=== PATIENT | male | born 1985 | race Caucasian/White ===

== ENCOUNTER 2016-09-01 09:06 | Emergency (ER) ==
[2016-09-01 09:15] VITALS: BP 129/86; TEMP 99.1; BMI 33.9
--- NOTE | 2016-09-01 09:32 | ED.PDOC ---
General ED Provider: Dr. HIMANSHU MAYO JR Chief Complaint: Sore Throat Stated Complaint: PATIENT C/O SORE THROAT AND FEVER WITH NASAL CONGESTION.[End] since yesterday 99.1 104 14 95% 129/86 3/10 tylenol and sudafed Time Seen by Physician: 09:31 Mode of Arrival: Walk-In Information Source: Patient Exam Limitations: No limitations Nursing and Triage Documentation Reviewed and Agree: No Review of Systems - Review Of Systems Constitutional: Reports: Fever, Malaise Ears, Nose, Mouth, Throat: Reports: Nose pain, Nose discharge, Throat pain Respiratory: Reports: No symptoms Cardiac: Reports: No symptoms GI: Reports: No symptoms : Reports: No symptoms Musculoskeletal: Reports: No symptoms Skin: Reports: No symptoms Neurological: Reports: No symptoms Endocrine: Reports: No symptoms Hematologic/Lymphatic: Reports: No symptoms All Other Systems: Other Past Medical History - Past Medical History Endocrine: Reports: None Cardiovascular: Reports: None Respiratory: Reports: None Hematological: Reports: None Gastrointestinal: Reports: None Genitourinary: Reports: None Neuro/Psych: Reports: None Musculoskeletal: Reports: None Cancer: Reports: None - Surgical History General Surgical History: Reports: None - Family History Family History: Reports: None - Social History Smoking Status: Never smoker Hx Substance Use: No Alcohol Screening: Occasionally Physical Exam - Physical Exam Appearance: Ill-appearing Ill-appearing: Moderate Pain Distress: Moderate Eyes: CHARLES, EOMI, Conjunctiva clear ENT: Erythema Neck: Supple Respiratory: Airway patent, Breath sounds clear, Breath sounds equal, Respirations nonlabored Cardiovascular: RRR, Pulses normal, No rub, No murmur GI/: Soft, Nontender, No masses, Bowel sounds normal, No Organomegaly Musculoskeletal: Normal strength, ROM intact, No edema, No calf tenderness Skin: Warm, Dry, Normal color Neurological: Sensation intact, Motor intact, Reflexes intact, Cranial nerves intact, Alert, Oriented Psychiatric: Affect appropriate, Mood appropriate Critical Care Note - Critical Care Note Total Time (mins): 0 Course - Course Vital Signs: Temp Pulse Resp BP Pulse Ox 09/01/16 09:14 99.1 F 104 H 14 129/86 95 Departure - Departure Time of Disposition: 09:47 Disposition: HOME SELF-CARE Discharge Problem: URTI (acute upper respiratory infection), Streptococcus group A exposure Instructions: Upper Respiratory Infection (ED), Pharyngitis (ED) Condition: Good Pt referred to PMD for follow-up: Yes Additional Instructions: Tylenol and Motrin for symptoms rest increase fluids should resolve over 2-4 days if worsening or productive cough with fever; recheck recheck PMD next week if not resolved Prescriptions: Cephalexin [Keflex] 500 mg PO QID #40 capsule Allergies/Adverse Reactions: Allergies No Known Drug Allergies Adverse Reaction (Verified 09/01/16 09:15) Home Medications: Ambulatory Orders Cephalexin [Keflex] 500 mg PO QID #40 capsule 09/01/16
[2016-09-01 10:11] LABS: FLU INTERNAL QC INTERNAL QC VALID; RAPID FLU A NEGATIVE (NEGATIVE); RAPID FLU B NEGATIVE (NEGATIVE)
== END 2016-09-01 10:24 | disposition home or self-care (01) ==
LOC: ED 09:06
DX: J06.9 Acute upper respiratory infection, unspecified (principal); Z20.89 Contact with and (suspected) exposure to other communicable diseases
CPT/HCPCS: 87651; 87804; 87880; 99283

== ENCOUNTER 2017-08-06 12:00 | Emergency (ER) ==
[2017-08-06 12:05] VITALS: BP 145/89; TEMP 98.2; BMI 35.1
--- NOTE | 2017-08-06 13:01 | ED.PDOC ---
General ED Provider: Dr. YAN NOLASCO Chief Complaint: Nausea/Vomiting Stated Complaint: Flu symptoms with recurrent lower GI symptoms of diarrhea plus nausea. No signinficant emesis[place] and developed diarrhea. Has taken Immodium with relief Time Seen by Physician: 13:10 Mode of Arrival: Walk-In Information Source: Patient, Family Exam Limitations: No limitations Nursing and Triage Documentation Reviewed and Agree: Yes Reviewed sepsis parameters & appropriate labs ordered?: Yes System Inflammatory Response Syndrome: Not Applicable Sepsis Protocol: For patient's 13 years and over: Temp is 96.8 and below OR 101 and greater Pulse >90 BPM Resp >20/minute Acutely Altered Mental Status Are patient's symptoms suggestive of a new infection, such as: -Pneumonia -Skin, Soft Tissue -Endocarditis -UTI -Bone, Joint Infection -Implantable Device -Acute Abdominal Infection -Wound Infection -Meningitis -Blood Stream Catheter Infection -Unknown System Inflammatory Response Syndrome: Not Applicable GI Complaint Exam - Vomiting/Diarrhea Complaint/Exam Symptoms Are: Still present Episodes of Diarrhea Over Last 24 Hours: 4 Initial Severity: Mild Current Severity: Mild Character of Diarrhea: Reports: Watery Aggravating: Reports: Liquids Alleviating: Reports: Medications (Immodium) Associated Signs and Symptoms: Reports: Cramping Related History: Reports: Similar episode Last Oral Intake: This AM Review of Systems - Review Of Systems Constitutional: Reports: Loss of appetite. Denies: Chills, Diaphoresis, Fever, Sweats Eyes: Reports: No symptoms Ears, Nose, Mouth, Throat: Reports: No symptoms Respiratory: Reports: No symptoms Cardiac: Reports: No symptoms GI: Reports: Diarrhea, Nausea, Poor appetite. Denies: Blood streaked bowels, Constipated, Difficulty swallowing, Poor fluid intake, Rectal bleeding, Vomiting : Reports: No symptoms Musculoskeletal: Reports: No symptoms Skin: Reports: No symptoms Neurological: Reports: No symptoms Endocrine: Reports: No symptoms Hematologic/Lymphatic: Reports: No symptoms All Other Systems: Reviewed and Negative Past Medical History - Past Medical History Endocrine: Reports: None Cardiovascular: Reports: None Respiratory: Reports: None Hematological: Reports: None Gastrointestinal: Reports: None Genitourinary: Reports: None Neuro/Psych: Reports: None Musculoskeletal: Reports: None Cancer: Reports: None - Surgical History General Surgical History: Reports: None - Family History Family History: Reports: None - Social History Smoking Status: Never smoker Hx Substance Use: No Alcohol Screening: Occasionally Physical Exam - Physical Exam Appearance: Well-appearing Ill-appearing: Mild Eyes: CHARLES, EOMI, Conjunctiva clear ENT: Ears normal, Nose normal Neck: Supple Respiratory: Airway patent, Breath sounds clear Cardiovascular: RRR, Pulses normal, No rub, No murmur GI/: Soft, Bowel sounds normal, No Organomegaly, Tender (mimally in mid abdomen without guarding) Musculoskeletal: Normal strength, ROM intact, No edema Skin: Warm, Dry, Normal color Neurological: Sensation intact, Motor intact, Reflexes intact, Alert, Oriented, Disoriented, Alert to verbal Psychiatric: Affect appropriate, Mood appropriate, Anxious Critical Care Note - Critical Care Note Total Time (mins): 0 Course - Course Hematology/Chemistry: 08/06/17 13:14 08/06/17 13:14 Orders, Labs, Meds: Lab Review 08/06/17 08/06/17 08/06/17 13:00 13:14 13:14 WBC 11.50 H RBC 5.13 Hgb 16.1 Hct 46.7 MCV 91.0 MCH 31.4 H MCHC 34.5 RDW Coeff of Delbert 12.7 Plt Count 192 Immature Gran % (Auto) 0.3 Neut % (Auto) 60.1 Lymph % (Auto) 29.5 [place] % (Auto) 8.1 Eos % (Auto) 1.4 Baso % (Auto) 0.6 Immature Gran # (Auto) 0.0 Neut # 6.9 Lymph # 3.4 [place] # 0.9 Eos # 0.2 Baso # 0.1 Sodium 141 Potassium 4.1 Chloride 105 Carbon Dioxide 30 Anion Gap 10.1 BUN 16 Creatinine 1.02 Estimated GFR (MDRD) 84.00 BUN/Creatinine Ratio 15.68 Glucose 117 H Calcium 9.8 Total Bilirubin 0.9 AST 23 ALT 36 Alkaline Phosphatase 38 L Total Protein 8.2 Albumin 4.0 Globulin 4.2 Albumin/Globulin Ratio 0.95 Influenza A (Rapid) Negative by naat Influenza B (Rapid) Negative by naat Orders Category Date Time Status CBC W/ AUTO DIFF Stat LAB 08/06/17 13:14 Completed CMP [COMPREHENSIVE METABOLIC PANEL] Stat LAB 08/06/17 13:14 Completed FLU A & B RAPID TEST [MOLECULAR FLU A/B] Stat LAB 08/06/17 13:00 Completed RAPID STREP SCREEN [MOLECULAR GROUP A STREP] Stat LAB 08/06/17 13:00 Completed Diphenoxylate HCl/Atropine [Lomotil] MEDS 08/06/17 13:04 Discontinued 1 tab PO ONCE STA Ondansetron [Zofran Odt] MEDS 08/06/17 13:04 Discontinued 4 mg PO ONCE STA Medications Discontinued Medications Generic Name Dose Route Start Last Admin Trade Name Freq PRN Reason Stop Dose Admin Diphenoxylate HCl/Atropine 1 tab 08/06/17 13:04 08/06/17 13:15 Lomotil PO 08/06/17 13:05 1 tab ONCE STA Administration Ondansetron HCl 4 mg 08/06/17 13:04 08/06/17 13:16 Zofran Odt PO 08/06/17 13:05 4 mg ONCE STA Administration Vital Signs: Temp Pulse Resp BP Pulse Ox 08/06/17 12:01 98.2 F 93 H 20 145/89 H 96 Departure - Departure Time of Disposition: 15:50 Disposition: HOME SELF-CARE Discharge Problem: Gastroenteritis Instructions: Gastroenteritis (ED) Condition: Good Pt referred to PMD for follow-up: Yes (Follow up in 2-3 days; off work 2 days) Additional Instructions: Return ER if symptoms worsen Allergies/Adverse Reactions: Allergies No Known Drug Allergies Adverse Reaction (Verified 08/06/17 12:07) Home Medications: Ambulatory Orders 1 [No Reported Medications] 08/06/17 Disposition Discussed With: Patient, Family
[2017-08-06] MEDS ORDERED: LOMOTIL PO STA (13:04)
[2017-08-06] MEDS ORDERED: ZOFRAN ODT PO STA (13:04)
== END 2017-08-06 15:55 | disposition home or self-care (01) ==
LOC: ED 12:00
DX: K52.9 Noninfective gastroenteritis and colitis, unspecified (principal)
CPT/HCPCS: 36415; 80053; 85025; 87502; 87651; 99283

== ENCOUNTER 2018-01-22 16:50 | Emergency (ER) ==
[2018-01-22 16:52] VITALS: BP 146/99; TEMP 99; BMI 34.8
--- NOTE | 2018-01-22 17:03 | ED.PDOC ---
General ED Provider: Dr. GALE ORR Chief Complaint: Tooth Problem Stated Complaint: DENTAL PAIN Time Seen by Physician: 17:00 Mode of Arrival: Walk-In Information Source: Patient Exam Limitations: No limitations Nursing and Triage Documentation Reviewed and Agree: Yes Does patient meet sepsis criteria?: Yes If yes, has appropriate treatment been initiated?: No System Inflammatory Response Syndrome: Not Applicable Sepsis Protocol: For patient's 13 years and over: Temp is 96.8 and below OR 101 and greater Pulse >90 BPM Resp >20/minute Acutely Altered Mental Status Are patient's symptoms suggestive of a new infection, such as: -Pneumonia -Skin, Soft Tissue -Endocarditis -UTI -Bone, Joint Infection -Implantable Device -Acute Abdominal Infection -Wound Infection -Meningitis -Blood Stream Catheter Infection -Unknown EENT Complaint Exam - Dental/Oral Complaint/Exam Mechanism of Injury: No known trauma Onset/Duration: 3 DAYS Symptoms Are: Still present Timing: Constant Initial Severity: Moderate Current Severity: Moderate Character: Reports: Throbbing Aggravating: Reports: Heat, Cold, Chewing Alleviating: Reports: OTC Meds (MOTRIN HAS USED ONE EVERY 6 HOURS ) Associated Signs and Symptoms: Denies: Swelling, Discharge, Fever, Foul odor, Foul taste in mouth Cardiac Risk Factors: Reports: None Dental/Oral Surgical History: Reports: None Tooth Findings: Present: Gross decay, Gross caries, Dental fracture Cervical Lymphadenopathy Present: No Facial Swelling Present: No Bleeding Present: No Oropharynx Findings: Absent: Clots, Active bleeding Septal Hematoma: No Foreign Body Present: No Dysphagia Present: No Drooling Present: No Asymmetrical Tonsillar Swelling Present: No Uvula Midline: Yes Mar-tonsillar Fluctuence: No Trismus Present: No Palatal Petechiae Present: No Scarlatinaform Rash Present: No Lesions: Absent: Lip, Gums, Tongue, Buccal Mucosa, Pharynx Exanthem: Absent: Lip, Gums, Tongue, Buccal Mucosa, Pharynx Vesicles: Absent: Lip, Gums, Tongue, Buccal Mucosa, Pharynx Teeth Picture: 1 - BROKEN Differential Diagnoses: Dental Caries, Fractured Tooth Review of Systems - Review Of Systems Constitutional: Reports: No symptoms Eyes: Reports: No symptoms Ears, Nose, Mouth, Throat: Reports: Mouth pain Respiratory: Reports: No symptoms Cardiac: Reports: No symptoms GI: Reports: No symptoms : Reports: No symptoms Musculoskeletal: Reports: No symptoms Skin: Reports: No symptoms Neurological: Reports: No symptoms Endocrine: Reports: No symptoms Hematologic/Lymphatic: Reports: No symptoms All Other Systems: Reviewed and Negative Past Medical History - Past Medical History Previously Healthy: Yes Endocrine: Reports: None Cardiovascular: Reports: None Respiratory: Reports: None Hematological: Reports: None Gastrointestinal: Reports: None Genitourinary: Reports: None Neuro/Psych: Reports: None Musculoskeletal: Reports: None Cancer: Reports: None - Surgical History General Surgical History: Reports: None - Family History Family History: Reports: None - Social History Smoking Status: Never smoker Hx Substance Use: No Alcohol Screening: Occasionally Physical Exam - Physical Exam Appearance: Well-appearing, No pain distress, Well-nourished Eyes: CHARLES, EOMI, Conjunctiva clear ENT: Ears normal, Nose normal, Oropharynx normal Respiratory: Airway patent, Breath sounds clear, Breath sounds equal, Respirations nonlabored Cardiovascular: RRR, Pulses normal, No rub, No murmur GI/: Soft, Nontender, No masses, Bowel sounds normal, No Organomegaly Musculoskeletal: Normal strength, ROM intact, No edema, No calf tenderness Skin: Warm, Dry, Normal color Neurological: Sensation intact, Motor intact, Reflexes intact, Cranial nerves intact, Alert, Oriented Psychiatric: Affect appropriate, Mood appropriate Critical Care Note - Critical Care Note Total Time (mins): 0 Course - Course Vital Signs: Temp Pulse Resp BP Pulse Ox 01/22/18 16:50 99.0 F 96 H 18 146/99 H 98 Departure - Departure Time of Disposition: 17:03 Disposition: HOME SELF-CARE Discharge Problem: Toothache Instructions: Toothache (ED) Condition: Good Pt referred to PMD for follow-up: Yes IPMP verified?: No Additional Instructions: Please call your Family Physician as soon as possible to schedule a follow-up appointment.MUST SEE YOUR DENTIST GRETA Prescriptions: Hydrocodone/Acetaminophen [Goodman 10-325 Tablet] 1 each PO Q8HR #14 tablet Allergies/Adverse Reactions: Allergies No Known Drug Allergies Adverse Reaction (Verified 01/22/18 16:52) Home Medications: Ambulatory Orders Hydrocodone/Acetaminophen [Goodman 10-325 Tablet] 1 each PO Q8HR #14 tablet Disposition Discussed With: Patient
== END 2018-01-22 17:11 | disposition home or self-care (01) ==
LOC: ED 16:50
DX: K08.89 Other specified disorders of teeth and supporting structures (principal); K02.7 Dental root caries; S02.5XXA Fracture of tooth (traumatic), initial encounter for closed fracture
CPT/HCPCS: 99282

== ENCOUNTER 2018-04-13 23:35 | Emergency (ER) ==
--- NOTE | 2018-04-13 23:46 | ED.PDOC ---
General ED Provider: Dr. YAN WATSON-ER Chief Complaint: Tooth Problem Stated Complaint: my tooth is killing me Time Seen by Physician: 23:44 Mode of Arrival: Walk-In Information Source: Patient, Family Exam Limitations: No limitations Nursing and Triage Documentation Reviewed and Agree: Yes Does patient meet sepsis criteria?: No System Inflammatory Response Syndrome: Not Applicable Sepsis Protocol: For patient's 13 years and over: Temp is 96.8 and below OR 101 and greater Pulse >90 BPM Resp >20/minute Acutely Altered Mental Status Are patient's symptoms suggestive of a new infection, such as: -Pneumonia -Skin, Soft Tissue -Endocarditis -UTI -Bone, Joint Infection -Implantable Device -Acute Abdominal Infection -Wound Infection -Meningitis -Blood Stream Catheter Infection -Unknown EENT Complaint Exam - Dental/Oral Complaint/Exam Mechanism of Injury: Unknown Onset/Duration: several days Symptoms Are: Still present Timing: Constant Initial Severity: Mild Current Severity: Moderate Location: left lower molar Character: Reports: Dull, Aching, Throbbing Aggravating: Reports: None Alleviating: Reports: None Associated Signs and Symptoms: Reports: Swelling Related History: Reports: Previous tooth problem Tooth Findings: Present: Percussion tenderness, Gross decay, Gross caries, Dental fracture Cervical Lymphadenopathy Present: No Facial Swelling Present: No Bleeding Present: No Septal Hematoma: No Foreign Body Present: No Dysphagia Present: No Drooling Present: No Asymmetrical Tonsillar Swelling Present: No Uvula Midline: Yes Mar-tonsillar Fluctuence: No Trismus Present: No Palatal Petechiae Present: No Scarlatinaform Rash Present: No Differential Diagnoses: Dental Caries Review of Systems - Review Of Systems Constitutional: Reports: No symptoms Eyes: Reports: No symptoms Ears, Nose, Mouth, Throat: Reports: Mouth pain Respiratory: Reports: No symptoms Cardiac: Reports: No symptoms GI: Reports: No symptoms : Reports: No symptoms Musculoskeletal: Reports: No symptoms Skin: Reports: No symptoms Neurological: Reports: No symptoms Endocrine: Reports: No symptoms Hematologic/Lymphatic: Reports: No symptoms All Other Systems: Reviewed and Negative Past Medical History - Past Medical History Previously Healthy: Yes Endocrine: Reports: None Cardiovascular: Reports: None Respiratory: Reports: None Hematological: Reports: None Gastrointestinal: Reports: None Genitourinary: Reports: None Neuro/Psych: Reports: None Musculoskeletal: Reports: None Cancer: Reports: None - Surgical History General Surgical History: Reports: None - Family History Family History: Reports: None - Social History Smoking Status: Never smoker Hx Substance Use: No Alcohol Screening: Occasionally Physical Exam - Physical Exam Appearance: Well-appearing, No pain distress, Well-nourished Eyes: CHARLES, EOMI, Conjunctiva clear ENT: Ears normal, Nose normal, Oropharynx normal, Erythema Neck: Supple Respiratory: Airway patent, Breath sounds clear, Breath sounds equal, Respirations nonlabored Cardiovascular: RRR, Pulses normal, No rub, No murmur GI/: Soft, Nontender, No masses, Bowel sounds normal, No Organomegaly Musculoskeletal: Normal strength, ROM intact, No edema, No calf tenderness Skin: Warm, Dry, Normal color Neurological: Sensation intact, Motor intact, Reflexes intact, Cranial nerves intact, Alert, Oriented Psychiatric: Affect appropriate, Mood appropriate Critical Care Note - Critical Care Note Total Time (mins): 0 Departure - Departure Time of Disposition: 23:47 Disposition: HOME SELF-CARE Discharge Problem: Dental abscess Instructions: Dental Abscess (ED) Condition: Good Pt referred to PMD for follow-up: Yes IPMP verified?: No Additional Instructions: norco 7.5mg q 4hrs prn pain #10---amoxil 250mg tid x 7d ays---f/u dentist marlon Allergies/Adverse Reactions: Allergies No Known Drug Allergies Adverse Reaction (Verified 04/13/18 23:42) Home Medications: Ambulatory Orders 1 [No Reported Medications] 04/13/18 Disposition Discussed With: Patient, Family
[2018-04-13 23:51] VITALS: BP 142/86; TEMP 98.6; BMI 33.9
== END 2018-04-13 23:50 | disposition home or self-care (01) ==
LOC: ED 23:35
DX: K04.7 Periapical abscess without sinus (principal); K02.7 Dental root caries
CPT/HCPCS: 99282

== ENCOUNTER 2021-07-28 13:05 | Inpatient (IN) ==
[2021-07-28] MEDS ORDERED: VENTOLIN HFA (PER PUFF-WITH SPACER) IH ONE (13:17)
[2021-07-28] MEDS ORDERED: ATROVENT HFA INHALER (PER PUFF-WITH SPACER) IH ONE (13:17)
[2021-07-28 13:45] LABS: ABG O2 HGB 86.6 % (95-100); ABG PH 7.47 (7.35-7.45); BEecf 5.4 (-2.0-3.0); HCO3 29.1 (21-28); MetHb 1.5 (0-1.5); TCO2 30.3 (19-24); sO2 87.5 % (94-98); tHb 15.9 g/dl (11.7-17.4)
[2021-07-28 13:51] LABS: BASOPHILS % (AUTO) 0.2 % (0.0-3.0); HEMATOCRIT 42.7 % (42.0-52.0); IMMATURE GRANULOCYTE % (AUTO) 0.3 % (0.0-5.0); LYMPHOCYTES # (AUTO) 1.4 K/uL (0.60-3.4); LYMPHOCYTES % (AUTO) 23.7 (10.0-50.0); MEAN CORPUSCULAR HEMOGLOBIN 30.9 pg (27.0-31.0); MEAN CORPUSCULAR HGB CONC 35.1 (31.8-35.4); MONOCYTES # (AUTO) 0.3 K/uL (0.4-2.0); MONOCYTES % (AUTO) 5.9 (0-10); NEUTROPHILS % (AUTO) 69.9 % (42.2-75.2); PLATELET COUNT 129 10^3/uL (140-440); RDW COEFFICIENT OF VARIATION 12.8 % (11.6-14.8); RED BLOOD COUNT 4.85 10^6/ul (4.70-6.10); WHITE BLOOD COUNT 5.78 K/ul (4.2-10.2)
[2021-07-28 14:02] LABS: ALBUMIN 4.19 g/dL (3.5-5.0); ALKALINE PHOSPHATASE 42.2 U/L (38-126); ASPARTATE AMINO TRANSFERASE 53.9 U/L (17-59); BLOOD UREA NITROGEN 13.6 mg/dL (9-20); CALCIUM 8.83 mg/dL (8.4-10.2); CARBON DIOXIDE 28.9 mmol/L (22-30.0); CREATININE 0.87 mg/dL (0.60-1.10); GLUCOSE 132.1 mg/dL (74-106); SODIUM 135.6 mmol/L (134.5-145); TOTAL PROTEIN 7.54 g/dL (6.3-8.2)
[2021-07-28 14:14] LABS: TROPONIN I < 0.012 ng/ml (0.0000-0.120)
[2021-07-28 14:18] LABS: CREATINE KINASE MB 0.512 ng/ml (0.0-2.38)
--- NOTE | 2021-07-28 14:28 | DI ---
EXAM: CHEST RADIOGRAPH (1 VIEW) TECHNIQUE: Frontal Chest Radiograph. HISTORY: Cough. COMPARISON: Chest radiograph 05/11/2019 FINDINGS: Lines, Tubes, Devices: None Lungs and Pleura: Low lung volumes. Multifocal opacities in the right upper lobe, right lower lobe, and left lower lobe. No pleural effusion. No pneumothorax. Cardiomediastinum: Enlarged cardiomediastinal silhouette. No aortic calcifications. Bones/Soft Tissues: No acute osseous abnormality. No soft tissue abnormality. Upper Abdomen: Within normal limits. IMPRESSION: Multifocal bilateral lung opacities concerning for pneumonia.
[2021-07-28] MEDS ORDERED: MOTRIN PO PRN (15:02)
[2021-07-28] MEDS ORDERED: ZOFRAN 4 MG/2 ML IVP PRN (15:02)
[2021-07-28] MEDS: ZITHROMAX PO SCH (15:41)
[2021-07-28] MEDS: ROCEPHIN 1 GM/50 ML D5W 1 GM/50 ML BAG IV SCH (15:41)
[2021-07-28] MEDS ORDERED: VENTOLIN HFA (PER PUFF-WITH SPACER) IH SCH (16:30)
[2021-07-28 16:37] VITALS: BMI 35.6
[2021-07-28] MEDS ORDERED: ROBITUSSIN DM SYRUP PO PRN (16:57)
[2021-07-28] MEDS ORDERED: ATROVENT HFA INHALER (PER PUFF-WITH SPACER) IH SCH (18:00)
[2021-07-28] MEDS: DECADRON IVP SCH (18:07)
[2021-07-28] MEDS: VITAMIN D PO SCH (18:08)
[2021-07-28] MEDS: PEPCID PO SCH (18:08)
[2021-07-28] MEDS: ZINC-220 PO SCH (18:09)
[2021-07-28] MEDS: TYLENOL PO PRN (18:09)
--- NOTE | 2021-07-28 19:21 | ED.PDOC ---
General ED Provider: Dr. YAN NOLASCO Chief Complaint: Cough Stated Complaint: Cough and congestion, fatigue , muscular aching Time Seen by Provider: 07/28/21 17:39 Mode of Arrival: Walk-In Information Source: Patient Exam Limitations: No limitations Nursing and Triage Documentation Reviewed and Agree: Yes Does patient meet sepsis criteria?: No System Inflammatory Response Syndrome: Not Applicable Sepsis Protocol: For patient's 13 years and over: Temp is 96.8 and below OR 101 and greater Pulse >90 BPM Resp >20/minute Acutely Altered Mental Status Are patient's symptoms suggestive of a new infection, such as: -Pneumonia -Skin, Soft Tissue -Endocarditis -UTI -Bone, Joint Infection -Implantable Device -Acute Abdominal Infection -Wound Infection -Meningitis -Blood Stream Catheter Infection -Unknown Respiratory Complaint Exam Shortness of Air Complaint/Exam Onset/Duration: 3days Symptoms Are: Still present and Worse Timing: Constant Initial Severity: Moderate Current Severity: Moderate Character: Reports Dyspnea at rest and Dyspnea on exertion Aggravating: Reports Movement and Deep breaths Alleviating: Reports None Associated Signs and Symptoms: Reports Cough, Wheezing, Chest pain with cough, Chest pain and Nasal congestion Related History: Reports Similar episode History of Healthcare-Acquired Pneumonia: No Pulmonary Embolism Risk Factors: Reports None Cardiac Risk Factors: Reports None Pseudomonas Risk Factors: Reports None Tuberculosis Risk Factors: Reports None Home Oxygen Use: No Recent Stress Test: No Recent Echo/LV Function: No Respiratory Distress: Mild Stridor Present: Yes Tracheal Deviation: No Subcutaneous Emphysema: No Accessory Muscle Use: No Diminished Breath Sounds: Yes Prolonged Expiratory Phase: No Unable to Speak Full Sentences: No Fatigue: Yes Leg Swelling: No Jayesh's Sign Present: No Grunting Respirations: No Kussmaul Respirations: No Differential Diagnoses: SARS, Bronchospasm and URI Quality Indicator For Non-Traumatic Chest Pain/Syncope: EKG Performed Quality Indicators For Pneumonia/CAP: Blood Cultures-SCU admit Review of Systems Review Of Systems Constitutional: Reports Malaise and Weakness Eyes: Reports No symptoms Ears, Nose, Mouth, Throat: Reports No symptoms Respiratory: Reports Cough, Short of air and Wheezing Cardiac: Reports No symptoms GI: Reports No symptoms : Reports No symptoms Musculoskeletal: Reports No symptoms Skin: Reports No symptoms Neurological: Reports Anxiety Endocrine: Reports No symptoms All Other Systems: Reviewed and Negative REPLACED BY [facility] Medical History (Updated 07/28/21 @ 19:21 by YAN NOLASCO DO) No pertinent past medical history Family History (Updated 07/28/21 @ 16:48 by ABIODUN CAR, RN) FATHER Diabetes Social History (Updated 07/28/21 @ 16:49 by ABIODUN CAR, YOVANI) Alcohol intake: current Alcohol intake frequency: holidays/special occasions only Details: Pt reports very rare consumption of alcohol Physical Exam Physical Exam Appearance: Reports Ill-appearing Ill-appearing: Moderate Pain Distress: Moderate Eyes: Reports CHARLES, EOMI, Conjunctiva clear, Conjunctiva pale and Right pupil size (PERL_A) ENT: Reports Ears normal, Oropharynx normal and TMs Occluded Neck: Supple Respiratory: Reports Airway patent, Breath sounds diminished and Wheezes Cardiovascular: Reports RRR and No murmur GI/: Reports Soft, Nontender and No masses Musculoskeletal: Reports Normal strength, ROM intact, No edema and No calf tenderness Skin: Reports Warm, Dry and Normal color Neurological: Reports Sensation intact, Motor intact, Reflexes intact, Cranial nerves intact, Alert and Oriented Psychiatric: Reports Affect appropriate and Mood appropriate Interpretation Radiology Interpretation Exam Interpreted: Portable CXR (pneumonia) EKG Interpretation Time of EKG #1: 13:46 Rate: Tachy Rhythm: Sinus Ectopy: None [place]: Left ST Segment: Normal Interpretation: sinus tachycardia Critical Care Note Critical Care Note Total Critical Care Time (mins): 30 Course Course Hematology/Chemistry: 07/28/21 13:35 07/28/21 13:35 Orders, Labs, Meds: Lab Review 07/28/21 07/28/21 07/28/21 13:15 13:35 13:35 WBC 5.78 RBC 4.85 Hgb 15.0 Hct 42.7 MCV 88.0 MCH 30.9 MCHC 35.1 RDW Coeff of Delbert 12.8 Plt Count 129 L Immature Gran % (Auto) 0.3 Neut % (Auto) 69.9 Lymph % (Auto) 23.7 Branch % (Auto) 5.9 Eos % (Auto) 0.0 Baso % (Auto) 0.2 Neut # (Auto) 4.0 Lymph # (Auto) 1.4 Branch # (Auto) 0.3 L Eos # (Auto) 0.0 Baso # (Auto) 0.0 Immature Gran # (Auto) 0.0 Puncture Site Base Excess O2 Saturation ABG pH ABG pCO2 ABG pO2 ABG HCO3 ABG Total CO2 Ozzie Test Hemoglobin Oxyhemoglobin Carboxyhemoglobin Total Hemoglobin O2 Delivery Device FiO2 % Sodium 135.6 Potassium 3.40 L Chloride 99.0 Carbon Dioxide 28.9 Anion Gap 11.10 BUN 13.6 Creatinine 0.87 Estimated GFR (MDRD) 98.00 BUN/Creatinine Ratio 15.63 Glucose 132.1 H Calcium 8.83 Total Bilirubin 0.80 AST 53.9 ALT 36.0 Alkaline Phosphatase 42.2 Total Creatine Kinase 426.0 H CK-MB (CK-2) 0.512 CK-MB (CK-2) % 0.1200 Troponin I < 0.012 Total Protein 7.54 Albumin 4.19 Globulin 3.35 Albumin/Globulin Ratio 1.25 SARS CoV-2 RNA Rapid RODGER Positive H 07/28/21 13:41 WBC RBC Hgb Hct MCV MCH MCHC RDW Coeff of Delbert Plt Count Immature Gran % (Auto) Neut % (Auto) Lymph % (Auto) Branch % (Auto) Eos % (Auto) Baso % (Auto) Neut # (Auto) Lymph # (Auto) Branch # (Auto) Eos # (Auto) Baso # (Auto) Immature Gran # (Auto) Puncture Site Rbrach Base Excess 5.4 H O2 Saturation 87.5 L ABG pH 7.47 H ABG pCO2 40.0 ABG pO2 50.0 L* ABG HCO3 29.1 H ABG Total CO2 30.3 H Ozzie Test + Hemoglobin 1.5 Oxyhemoglobin 86.6 L Carboxyhemoglobin 2.0 H Total Hemoglobin 15.9 O2 Delivery Device Ra FiO2 % 21.0 Sodium Potassium Chloride Carbon Dioxide Anion Gap BUN Creatinine Estimated GFR (MDRD) BUN/Creatinine Ratio Glucose Calcium Total Bilirubin AST ALT Alkaline Phosphatase Total Creatine Kinase CK-MB (CK-2) CK-MB (CK-2) % Troponin I Total Protein Albumin Globulin Albumin/Globulin Ratio SARS CoV-2 RNA Rapid RODGER Orders Category Date Time Status ADMIT PATIENT INPATIENT .TO SCU (MONITORED BED) ADMISSION 07/28/21 15:01 Active ABG DRAW REQUEST Stat CARDIO 07/28/21 13:17 Completed EKG-(ED ONLY) Stat CARDIO 07/28/21 13:17 Completed EKG-(ED ONLY) Stat CARDIO 07/28/21 13:52 Completed METERED DOSE INHALATION Routine CARDIO 07/28/21 13:17 Completed OXYGEN Routine CARDIO 07/28/21 15:02 Active BLOOD GLUCOSE MONITORING (MED/SURG) 0630,1100,1700,2100 CARE 07/28/21 15:03 Active INTAKE & OUTPUT Q8HR CARE 07/28/21 15:02 Active TELEMETRY MONITORING TELE CARE 07/28/21 15:01 Active 2 GRAM SODIUM DIET DIETARY 07/28/21 Dinner Ordered IV [ED IV/MEDIPORT/POWERPORT] .ONCE EMERGENCY 07/28/21 13:54 Active ABG COOX Stat LAB 07/28/21 13:41 Completed BLOOD CULTURE Routine LAB 07/28/21 15:29 Received CBC W/ AUTO DIFF DAILY@0600 LAB 07/29/21 06:00 Ordered CBC W/ AUTO DIFF DAILY@0600 LAB 07/30/21 06:00 Ordered CBC W/ AUTO DIFF Stat LAB 07/28/21 13:35 Completed COMPREHENSIVE METABOLIC PANEL DAILY@0600 LAB 07/29/21 06:00 Ordered COMPREHENSIVE METABOLIC PANEL DAILY@0600 LAB 07/30/21 06:00 Ordered COMPREHENSIVE METABOLIC PANEL Stat LAB 07/28/21 13:35 Completed CREATINE KINASE Stat LAB 07/28/21 13:35 Completed D-DIMER Stat LAB 07/28/21 Uncollected SARS COV-2 RNA RAPID RODGER Stat LAB 07/28/21 13:15 Completed TROPONIN I Stat LAB 07/28/21 13:35 Completed 0.9 % Sodium Chloride [Saline Flush] MEDS 07/28/21 13:54 Active 1 syr IVF PRN PRN Albuterol Inhaler(with Spacer) [Ventolin Hfa (Per Puff- MEDS 07/28/21 13:17 Discontinued with Spacer)] 2 puff IH ONCE ONE Azithromycin [Zithromax] MEDS 07/28/21 15:30 Active 500 mg PO DAILY Ceftriaxone/D5w 1 gm Premix [Rocephin 1 gm/50 ml D5w] MEDS 07/28/21 15:30 Active 1 gm in 50 ml IV DAILY Ibuprofen [Motrin] MEDS 07/28/21 15:02 Active 600 mg PO Q6H PRN Ipratropium Inhaler(Spacer) [Atrovent Hfa Inhaler (Per MEDS 07/28/21 13:17 Discontinued Puff-with Spacer)] 2 puff IH ONCE ONE Ondansetron HCl/Pf [Zofran 4 mg/2 ml] MEDS 07/28/21 15:02 Active 4 mg IVP Q6H PRN RESUSCITATION STATUS Routine OTHERS 07/28/21 15:02 Completed CHEST, 1V AP ONLY Stat RADS 07/28/21 13:51 Completed Medications Generic Name Dose Route Start Last Admin Trade Name Freq PRN Reason Stop Dose Admin Acetaminophen 650 mg 07/28/21 15:10 07/28/21 18:09 Acetaminophen 325 Mg Tablet PO 650 mg Q4H PRN Administration Pain Albuterol Sulfate 2 puff 07/28/21 20:00 Albuterol Sulfate (Ventolin Hfa) 18 Gm 1 Puff With Spacer IH RTQID CAMPOS Albuterol Sulfate 2 puff 07/28/21 21:00 Albuterol Sulfate (Ventolin Hfa) 18 Gm 1 Puff With Spacer IH TID CAMPOS Azithromycin 500 mg 07/28/21 15:30 07/28/21 15:41 Azithromycin 250 Mg Tablet PO 07/31/21 08:59 500 mg DAILY CAMPOS Administration Budesonide/Formoterol Fumarate 2 puff 07/28/21 21:00 Budesonide/Formoterol Fumarate 160/4.5 Mcg Inhaler IH BID CAMPOS Cholecalciferol 5,000 unit 07/28/21 17:30 07/28/21 18:08 Cholecalciferol (Vitamin D3) 1,000 Unit (25 Mcg) Tablet PO 5,000 unit DAILY CAMPOS Administration Dexamethasone Sodium Phosphate 6 mg 07/28/21 17:00 07/28/21 18:07 Dexamethasone Sod Phos 10 Mg/Ml Inj IVP 6 mg DAILY CMAPOS Administration Famotidine 40 mg 07/28/21 17:30 07/28/21 18:08 Famotidine 20 Mg Tablet PO 40 mg BIDAC CAMPOS Administration Guaifenesin/Dextromethorphan 10 ml 07/28/21 16:57 07/28/21 18:09 Guaifenesin/Dextromethorphan 200/20 Mg/10 Ml Cup PO 10 ml Q4H PRN Administration Cough CEFTRIAXONE/D5W 1 GM PREMIX 1 gm in 50 mls @ 75 mls/hr 07/28/21 15:30 07/28/21 15:41 Rocephin 1 Gm/50 Ml D5w IV 07/31/21 15:29 75 mls/hr DAILY CAMPOS Administration REMDESIVIR SOLUTION 200 mg/ 290 mls @ 145 mls/hr 07/29/21 12:00 Sodium Chloride IV 07/29/21 13:59 ONCE ONE REMDESIVIR SOLUTION 100 mg/ 270 mls @ 270 mls/hr 07/30/21 09:00 Sodium Chloride IV DAILY [facility] Ibuprofen 600 mg 07/28/21 15:02 Ibuprofen 600 Mg Tablet PO Q6H PRN Mild Pain Ipratropium [place] 2 puff 07/28/21 20:00 Ipratropium [place] 12.9 Gm Hfa Inhaler Per Puff With Spacer IH RTQID [facility] Ondansetron HCl 4 mg 07/28/21 15:02 Ondansetron Hcl/Pf 4 Mg/2 Ml Sdv IVP Q6H PRN Nausea / Vomiting Sodium Chloride 1 syr 07/28/21 13:54 0.9% Sodium Chloride 10 Ml Disp.Syrin IVF PRN PRN To flush IV Zinc Sulfate 220 mg 07/28/21 17:30 07/28/21 18:09 Zinc Sulfate 220 Mg Capsule PO 220 mg DAILY [facility] Administration Discontinued Medications Generic Name Dose Route Start Last Admin Trade Name Freq PRN Reason Stop Dose Admin Albuterol Sulfate 2 puff 07/28/21 13:17 07/28/21 13:50 Albuterol Sulfate (Ventolin Hfa) 18 Gm 1 Puff With Spacer IH 07/28/21 13:18 2 puff ONCE ONE Administration Albuterol Sulfate 2 puff 07/28/21 16:30 07/28/21 18:16 Albuterol Sulfate (Ventolin Hfa) 18 Gm 1 Puff With Spacer IH Not Given Q6H [facility] Ipratropium [place] 2 puff 07/28/21 13:17 07/28/21 15:16 Ipratropium [place] 12.9 Gm Hfa Inhaler Per Puff With Spacer IH 07/28/21 13:18 Not Given ONCE ONE Ipratropium [place] 2 puff 07/28/21 18:00 Ipratropium [place] 12.9 Gm Hfa Inhaler Per Puff With Spacer IH RTQ6H [facility] Vital Signs: Temp Pulse Resp BP Pulse Ox 07/28/21 13:13 96.9 F L 115 H 20 117/82 89 L Discharge Plan Discharge Patient Disposition: ADMITTED INPATIENT Discharge Problem: COVID-19, Bilateral interstitial pneumonia ED Provider: YAN NOLASCO Condition: Fair Physician Progress Note: []Discussed findings with patient Recommend admission for treatmetn Declines transfer. States Aunt and Uncle hospitalized with COVID
[2021-07-28] MEDS: ATROVENT HFA INHALER (PER PUFF-WITH SPACER) IH SCH (19:25)
[2021-07-28] MEDS: VENTOLIN HFA (PER PUFF-WITH SPACER) IH SCH ×2 (19:25→23:21)
[2021-07-28] MEDS: SYMBICORT 160-4.5 MCG INHALER IH SCH (21:27)
[2021-07-28] MEDS ORDERED: IMODIUM PO PRN (23:00)
[2021-07-29] MEDS: TYLENOL PO PRN ×2 (00:31→08:55)
[2021-07-29] MEDS: ROBITUSSIN AC SYRUP PO PRN ×5 (00:42→21:50)
[2021-07-29] MEDS: ATROVENT HFA INHALER (PER PUFF-WITH SPACER) IH SCH ×4 (04:40→19:45)
[2021-07-29] MEDS: VENTOLIN HFA (PER PUFF-WITH SPACER) IH SCH ×5 (04:40→19:45)
[2021-07-29] MEDS: PEPCID PO SCH ×2 (05:48→16:51)
[2021-07-29 06:13] LABS: BASOPHILS % (AUTO) 0.2 % (0.0-3.0); HEMATOCRIT 42.4 % (42.0-52.0); HEMOGLOBIN 14.8 g/dl (14.0-18.0); IMMATURE GRANULOCYTE % (AUTO) 0.3 % (0.0-5.0); LYMPHOCYTES # (AUTO) 1.4 K/uL (0.60-3.4); LYMPHOCYTES % (AUTO) 22.1 (10.0-50.0); MEAN CORPUSCULAR HEMOGLOBIN 30.7 pg (27.0-31.0); MEAN CORPUSCULAR HGB CONC 34.9 (31.8-35.4); MONOCYTES # (AUTO) 0.3 K/uL (0.4-2.0); MONOCYTES % (AUTO) 4.9 (0-10); NEUTROPHILS # (AUTO) 4.6 K/ul (2.0-6.9); NEUTROPHILS % (AUTO) 72.5 % (42.2-75.2); PLATELET COUNT 143 10^3/uL (140-440); RDW COEFFICIENT OF VARIATION 12.8 % (11.6-14.8); RED BLOOD COUNT 4.82 10^6/ul (4.70-6.10); WHITE BLOOD COUNT 6.34 K/ul (4.2-10.2)
[2021-07-29 06:30] LABS: PROTHROMBIN TIME 10.4 SEC (9.3-11.0)
[2021-07-29 06:30] LABS: ALANINE AMINOTRANSFERASE 35.3 U/L (0-50); ALBUMIN 4.27 g/dL (3.5-5.0); ALKALINE PHOSPHATASE 38.1 U/L (38-126); ASPARTATE AMINO TRANSFERASE 50.8 U/L (17-59); BILIRUBIN,TOTAL 0.78 mg/dL (0.2-1.3); BLOOD UREA NITROGEN 16.5 mg/dL (9-20); CALCIUM 8.99 mg/dL (8.4-10.2); CARBON DIOXIDE 29.6 mmol/L (22-30.0); CHLORIDE 96.8 mmol/L (98-107); CREATININE 0.89 mg/dL (0.60-1.10); POTASSIUM 3.83 mmol/L (3.5-5.1); SODIUM 135.2 mmol/L (134.5-145); TOTAL PROTEIN 7.65 g/dL (6.3-8.2)
[2021-07-29 06:41] LABS: TROPONIN I < 0.012 ng/ml (0.0000-0.120)
[2021-07-29] MEDS: ROCEPHIN 1 GM/50 ML D5W 1 GM/50 ML BAG IV SCH (08:55)
[2021-07-29] MEDS: SYMBICORT 160-4.5 MCG INHALER IH SCH ×2 (08:55→21:56)
[2021-07-29] MEDS: ZINC-220 PO SCH (08:55)
[2021-07-29] MEDS: VITAMIN D PO SCH (08:55)
[2021-07-29] MEDS: ZITHROMAX PO SCH (08:55)
[2021-07-29] MEDS: DECADRON IVP SCH (09:23)
[2021-07-29 11:38] LABS: ABG PH 7.45 (7.35-7.45); BEecf 5.2 (-2.0-3.0); COHb 2.7 (0.5-1.5); HCO3 29.2 (21-28); TCO2 30.5 (19-24); sO2 90.1 % (94-98); tHb 15.1 g/dl (11.7-17.4)
[2021-07-29] MEDS ORDERED: VEKLURY 200 MG in SODIUM CHLORIDE 250 ML IV ONE (12:00)
--- NOTE | 2021-07-29 22:46 | PCM.PROG ---
Date Seen by Provider: 07/29/21 Time Seen by Provider: 09:00 Subjective: Date of admit 07/28/21 for COVID pneumnonia and hypoxia. Says he feels somewhat better. Still with dyspnea, no pain. HPI - presented to ER with dyspnea, no vaccines. Objective: Vitals: T=98.4 F, P=92, R=30, TT=037/73, SPO2=94 HEENT: [WNL] Neck: [supple] Lungs: [Rhonchi, decreased breath sounds.] CVS: RRR, no m Abdomen: [soft] Extremities: [intact] Neurological: [intact] Skin: [intact] Lab/Tests/Diagnostic Imaging: [See labs, no acute changes of concern.] (1) Pneumonia due to COVID-19 virus: Status: Acute Code(s): U07.1 - COVID-19; J12.82 - Pneumonia due to coronavirus disease 2018 SNOMED Code(s): 067560033375761559 Assessment: Receiving standard therapy with remdesivir, decadron, albuterol prn. Rocephin and zithromax. Stable. (2) Hypoxia: Status: Acute Code(s): R09.02 - Hypoxemia SNOMED Code(s): 659931929 Assessment: Currently on vapotherm and maintaining sat. around 90% and better. No CO2 retention. Plan: 1. COVID pneumonia - continue current management. 2. Hypoxemia - continue vapotherm with RT monitoring.
[2021-07-30] MEDS: ROBITUSSIN AC SYRUP PO PRN ×4 (01:26→21:14)
[2021-07-30] MEDS ORDERED: ATIVAN IVP ONE (01:41)
[2021-07-30] MEDS: ATROVENT HFA INHALER (PER PUFF-WITH SPACER) IH SCH ×4 (04:15→19:15)
[2021-07-30] MEDS: VENTOLIN HFA (PER PUFF-WITH SPACER) IH SCH ×4 (04:15→19:15)
[2021-07-30 05:18] LABS: ABG O2 HGB 95.3 % (95-100); ABG PH 7.46 (7.35-7.45); BEecf 6.1 (-2.0-3.0); HCO3 29.9 (21-28); MetHb 0.9 (0-1.5); TCO2 31.2 (19-24); sO2 97.6 % (94-98)
[2021-07-30 05:32] LABS: HEMATOCRIT 42.9 % (42.0-52.0); HEMOGLOBIN 14.8 g/dl (14.0-18.0); IMMATURE GRANULOCYTE % (AUTO) 0.3 % (0.0-5.0); LYMPHOCYTES # (AUTO) 1.7 K/uL (0.60-3.4); LYMPHOCYTES % (AUTO) 21.4 (10.0-50.0); MEAN CORPUSCULAR HEMOGLOBIN 30.5 pg (27.0-31.0); MEAN CORPUSCULAR HGB CONC 34.5 (31.8-35.4); MEAN CORPUSCULAR VOLUME 88.5 fl (80.0-94.0); MONOCYTES # (AUTO) 0.6 K/uL (0.4-2.0); MONOCYTES % (AUTO) 7.1 (0-10); NEUTROPHILS # (AUTO) 5.6 K/ul (2.0-6.9); NEUTROPHILS % (AUTO) 71.2 % (42.2-75.2); PLATELET COUNT 154 10^3/uL (140-440); RDW COEFFICIENT OF VARIATION 12.7 % (11.6-14.8); RED BLOOD COUNT 4.85 10^6/ul (4.70-6.10); WHITE BLOOD COUNT 7.85 K/ul (4.2-10.2)
[2021-07-30 05:48] LABS: ALANINE AMINOTRANSFERASE 41.4 U/L (0-50); ALKALINE PHOSPHATASE 40.8 U/L (38-126); BILIRUBIN,TOTAL 0.72 mg/dL (0.2-1.3); BLOOD UREA NITROGEN 19.1 mg/dL (9-20); CALCIUM 8.69 mg/dL (8.4-10.2); CARBON DIOXIDE 29.7 mmol/L (22-30.0); CREATININE 0.86 mg/dL (0.60-1.10); GLUCOSE 118.2 mg/dL (74-106); POTASSIUM 3.54 mmol/L (3.5-5.1); SODIUM 136.8 mmol/L (134.5-145); TOTAL PROTEIN 7.45 g/dL (6.3-8.2)
[2021-07-30 05:52] LABS: PROTHROMBIN TIME 10.1 SEC (9.3-11.0)
[2021-07-30] MEDS: PEPCID PO SCH ×2 (05:56→16:44)
[2021-07-30 06:02] LABS: TROPONIN I < 0.012 ng/ml (0.0000-0.120)
[2021-07-30] MEDS: DECADRON IVP SCH (08:48)
[2021-07-30] MEDS: ROCEPHIN 1 GM/50 ML D5W 1 GM/50 ML BAG IV SCH (08:48)
[2021-07-30] MEDS: SYMBICORT 160-4.5 MCG INHALER IH SCH ×2 (08:49→21:00)
[2021-07-30] MEDS: VITAMIN D PO SCH (08:49)
[2021-07-30] MEDS: ZITHROMAX PO SCH (08:49)
[2021-07-30] MEDS: ZINC-220 PO SCH (08:49)
[2021-07-30] MEDS: VEKLURY 100 MG in SODIUM CHLORIDE 250 ML IV SCH (11:39)
--- NOTE | 2021-07-30 13:42 | PCM.PROG ---
Date Seen by Provider: 07/30/21 Time Seen by Provider: 10:00 Subjective: Patient is a 36 year old male who was admitted 3 days ago with COVID -19 Pneumonia. He states that he is feeling better. Denies any chest pain. States the bowels move every day and that his appetite is better. Objective: Vitals: T=97.8 F, P=82, R=18, GF=615/70, SPO2=97 HEENT: [MUCUS MEMBRANES ARE MOIST ] Neck: [supple] Lungs: [Basilar Rhonchi mostly diminished] CVS: [Regualr S1 and S2 ] Abdomen: [Soft, obese non tender ] Extremities: [no Edema, no cyanosis] Neurological: [Awake alert, moves all extremities. ] Skin: [Tattoos noted, No diaphoresis ] Lab/Tests/Diagnostic Imaging: [] (1) Pneumonia due to COVID-19 virus: Status: Acute Code(s): U07.1 - COVID-19; J12.82 - Pneumonia due to coronavirus disease 2018 SNOMED Code(s): 853253900580552216 Assessment: Continue current( Day #3) Antibiotic treatment and oxygen supplimentation including in hailers. Continues to need High flow oxygen (2) Hypoxia: Status: Acute Code(s): R09.02 - Hypoxemia SNOMED Code(s): 106322495 Assessment: Continues supplimentation. May need home oxygen set up prior to discharge. Plan: Continue DVT prophylaxis with lovenox Asking for another cough medication other than Robitussion. Will order Tesalone pearls.
[2021-07-30] MEDS: TESSALON PERLES PO SCH ×2 (14:17→21:14)
[2021-07-30] MEDS: TYLENOL PO PRN (21:14)
[2021-07-30] MEDS ORDERED: MILK OF MAGNESIA PO PRN (23:01)
[2021-07-30] MEDS: ROBITUSSIN SUGAR-FREE PO PRN (23:39)
[2021-07-30] MEDS: NORCO 10-325 PO PRN (23:39)
[2021-07-30] MEDS: ATIVAN IVP SCH (23:40)
[2021-07-31] MEDS: ROBITUSSIN SUGAR-FREE PO PRN ×4 (03:17→20:48)
[2021-07-31] MEDS: NORCO 10-325 PO PRN ×4 (03:17→20:47)
[2021-07-31] MEDS: ATROVENT HFA INHALER (PER PUFF-WITH SPACER) IH SCH ×4 (04:45→19:55)
[2021-07-31] MEDS: VENTOLIN HFA (PER PUFF-WITH SPACER) IH SCH ×4 (04:45→19:55)
[2021-07-31 05:29] LABS: ABG PH 7.43 (7.35-7.45)
[2021-07-31 05:30] LABS: ABG O2 HGB 93.8 % (95-100); BEecf 5.6 (-2.0-3.0); COHb 2 (0.5-1.5); HCO3 29.9 (21-28); MetHb 1.1 (0-1.5); TCO2 31.3 (19-24); sO2 96.1 % (94-98); tHb 15.2 g/dl (11.7-17.4)
[2021-07-31 05:39] LABS: ALANINE AMINOTRANSFERASE 39.2 U/L (0-50); ALBUMIN 3.81 g/dL (3.5-5.0); ALKALINE PHOSPHATASE 36.4 U/L (38-126); ASPARTATE AMINO TRANSFERASE 47.9 U/L (17-59); BILIRUBIN,TOTAL 0.63 mg/dL (0.2-1.3); BLOOD UREA NITROGEN 22.1 mg/dL (9-20); CALCIUM 8.88 mg/dL (8.4-10.2); CARBON DIOXIDE 33.6 mmol/L (22-30.0); CHLORIDE 99.6 mmol/L (98-107); CREATININE 0.94 mg/dL (0.60-1.10); GLUCOSE 121.5 mg/dL (74-106); POTASSIUM 3.4 mmol/L (3.5-5.1); SODIUM 138.7 mmol/L (134.5-145); TOTAL PROTEIN 7.1 g/dL (6.3-8.2)
[2021-07-31 05:59] LABS: PROTHROMBIN TIME 10.3 SEC (9.3-11.0)
[2021-07-31] MEDS: PEPCID PO SCH ×2 (06:01→16:19)
[2021-07-31] MEDS: DECADRON IVP SCH (08:32)
[2021-07-31] MEDS: ROCEPHIN 1 GM/50 ML D5W 1 GM/50 ML BAG IV SCH (08:32)
[2021-07-31] MEDS: VITAMIN D PO SCH (08:33)
[2021-07-31] MEDS: TESSALON PERLES PO SCH ×3 (08:33→20:47)
[2021-07-31] MEDS: SYMBICORT 160-4.5 MCG INHALER IH SCH ×2 (08:33→20:49)
[2021-07-31] MEDS: ZINC-220 PO SCH (08:33)
[2021-07-31 12:21] LABS: C-REACTIVE PROTEIN 57 mg/L (0-10)
[2021-07-31 12:21] LABS: C-REACTIVE PROTEIN 70 mg/L (0-10)
[2021-07-31] MEDS: VEKLURY 100 MG in SODIUM CHLORIDE 250 ML IV SCH (13:22)
--- NOTE | 2021-07-31 16:09 | PCM.PROG ---
Date Seen by Provider: 07/31/21 Time Seen by Provider: 09:00 Subjective: Admit 07/28/21 with COVID pneumonia and hypoxemia. Starting to feel better, less dyspnea. HPI - see chart, came to ER with dyspnea and admitted Objective: Vitals: T=98.4 F, P=112, R=20, BJ=323/72, SPO2=92 HEENT: [WNL] Neck: supple Lungs: [rhonchi, decreased breath sounds] CVS: [RRR] Abdomen: [soft, obese] Extremities: [intact, no change] Neurological: [intact] Skin: [wnl] Lab/Tests/Diagnostic Imaging: [See chart, all stable.] (1) Pneumonia due to COVID-19 virus: Status: Acute Code(s): U07.1 - COVID-19; J12.82 - Pneumonia due to coronavirus disease 2018 SNOMED Code(s): 603209543581579646 Assessment: Slow improvement, on remdesivir and standard other tx. (2) Hypoxia: Status: Acute Code(s): R09.02 - Hypoxemia SNOMED Code(s): 241174477 Assessment: On vapotherm, settings per RT, keeping sat 92% or higher Plan: 1. COVID pneumonia - continue same tx. 2. Hypoxia - continue vapotherm.
[2021-07-31] MEDS: ATIVAN IVP SCH (20:48)
[2021-08-01] MEDS: NORCO 10-325 PO PRN ×3 (00:41→18:26)
[2021-08-01] MEDS: ROBITUSSIN SUGAR-FREE PO PRN ×4 (00:42→15:38)
[2021-08-01] MEDS: ATROVENT HFA INHALER (PER PUFF-WITH SPACER) IH SCH ×4 (04:20→19:45)
[2021-08-01] MEDS: VENTOLIN HFA (PER PUFF-WITH SPACER) IH SCH ×4 (04:20→19:45)
[2021-08-01 05:19] LABS: BASOPHILS % (AUTO) 0.1 % (0.0-3.0); EOSINOPHILS % (AUTO) 0.3 % (0.0-7.0); HEMATOCRIT 41.3 % (42.0-52.0); HEMOGLOBIN 14.2 g/dl (14.0-18.0); IMMATURE GRANULOCYTE # (AUTO) 0.1 (0.0-1.0); IMMATURE GRANULOCYTE % (AUTO) 0.9 % (0.0-5.0); LYMPHOCYTES # (AUTO) 1.9 K/uL (0.60-3.4); LYMPHOCYTES % (AUTO) 25.2 (10.0-50.0); MEAN CORPUSCULAR HGB CONC 34.4 (31.8-35.4); MEAN CORPUSCULAR VOLUME 90.2 fl (80.0-94.0); MONOCYTES # (AUTO) 0.7 K/uL (0.4-2.0); NEUTROPHILS # (AUTO) 4.8 K/ul (2.0-6.9); NEUTROPHILS % (AUTO) 64.5 % (42.2-75.2); PLATELET COUNT 198 10^3/uL (140-440); RDW COEFFICIENT OF VARIATION 12.6 % (11.6-14.8); RED BLOOD COUNT 4.58 10^6/ul (4.70-6.10); WHITE BLOOD COUNT 7.37 K/ul (4.2-10.2)
[2021-08-01 05:36] LABS: ALANINE AMINOTRANSFERASE 36.3 U/L (0-50); ALBUMIN 3.72 g/dL (3.5-5.0); ALKALINE PHOSPHATASE 37.1 U/L (38-126); ASPARTATE AMINO TRANSFERASE 39.7 U/L (17-59); BILIRUBIN,TOTAL 0.56 mg/dL (0.2-1.3); BLOOD UREA NITROGEN 21.4 mg/dL (9-20); CALCIUM 9.17 mg/dL (8.4-10.2); CARBON DIOXIDE 33.1 mmol/L (22-30.0); CREATININE 0.93 mg/dL (0.60-1.10); GLUCOSE 114.2 mg/dL (74-106); POTASSIUM 3.89 mmol/L (3.5-5.1); SODIUM 139.2 mmol/L (134.5-145); TOTAL PROTEIN 6.9 g/dL (6.3-8.2)
[2021-08-01] MEDS: PEPCID PO SCH ×2 (05:38→18:26)
[2021-08-01 05:46] LABS: PROTHROMBIN TIME 10.6 SEC (9.3-11.0)
[2021-08-01 06:29] LABS: ABG PH 7.46 (7.35-7.45)
[2021-08-01 06:30] LABS: BEecf 6.8 (-2.0-3.0); COHb 2.3 (0.5-1.5); HCO3 30.6 (21-28); TCO2 31.9 (19-24); sO2 91.6 % (94-98); tHb 14.5 g/dl (11.7-17.4)
[2021-08-01 06:31] LABS: ABG O2 HGB 90.4 % (95-100)
[2021-08-01 08:21] LABS: ABG O2 HGB 93.6 % (95-100); ABG PH 7.46 (7.35-7.45); BEecf 6.8 (-2.0-3.0); COHb 2.1 (0.5-1.5); HCO3 30.6 (21-28); MetHb 0.9 (0-1.5); TCO2 31.9 (19-24); sO2 95.6 % (94-98); tHb 14.3 g/dl (11.7-17.4)
--- NOTE | 2021-08-01 08:40 | PCM.PROG ---
Date Seen by Provider: 08/01/21 Time Seen by Provider: 08:30 Subjective: Admit 07/28/21 with COVID pneumonia and hypoxemia. Starting to feel better, less dyspnea.Denies CP or dizziness RN reviewed telemmetry reveals arrhythmia at 0742- Isolated PVC followed by 3 beat run of V tach (no known PM Hx cardiac problems) HPI - see chart, came to ER with dyspnea and admitted Objective: Vitals: T=97.9 F, P=67, R=20, DL=357/85, SPO2=97 HEENT: WNL Neck: [] Lungs: CTA CVS:HRRR Abdomen: Soft nontender Extremities: neg Clubbing or cyanosis Neurological: WNL Skin: Circular patch pxoriasis lt post shoulder Lab/Tests/Diagnostic Imaging: [] (1) Pneumonia due to COVID-19 virus: Status: Acute Code(s): U07.1 - COVID-19; J12.82 - Pneumonia due to coronavirus disease 2019 SNOMED Code(s): 456005060600929678 (2) Hypoxia: Status: Acute Code(s): R09.02 - Hypoxemia SNOMED Code(s): 631269991 (3) Cardiac arrhythmia: Status: Acute Code(s): I49.9 - Cardiac arrhythmia, unspecified SNOMED Code(s): 057487497 Plan: Monitor Cardiac Telemetry Re check lab for Mg++ , K + deficd
[2021-08-01 10:12] LABS: BLOOD UREA NITROGEN 20.9 mg/dL (9-20); CALCIUM 9.21 mg/dL (8.4-10.2); CARBON DIOXIDE 34.4 mmol/L (22-30.0); CHLORIDE 101.7 mmol/L (98-107); CREATINE KINASE 136.7 U/L (55-170); CREATININE 0.87 mg/dL (0.60-1.10); MAGNESIUM 2.21 mg/dL (1.6-2.3); POTASSIUM 3.34 mmol/L (3.5-5.1); SODIUM 140.2 mmol/L (134.5-145)
[2021-08-01] MEDS: ZINC-220 PO SCH (10:18)
[2021-08-01] MEDS: DECADRON IVP SCH (10:18)
[2021-08-01] MEDS: SYMBICORT 160-4.5 MCG INHALER IH SCH ×2 (10:19→20:12)
[2021-08-01] MEDS: TESSALON PERLES PO SCH ×3 (10:19→20:11)
[2021-08-01] MEDS: VITAMIN D PO SCH (10:19)
[2021-08-01 10:27] LABS: CREATINE KINASE MB 0.96 ng/ml (0.0-2.38)
[2021-08-01] MEDS ORDERED: MAGNESIUM SULFATE 1 GM/100 ML D5W 2 GM/200 ML BAG IV STA (12:04)
[2021-08-01] MEDS ORDERED: POTASSIUM CHLORIDE 20 MEQ/100 ML PREMIX 20 MEQ/100 ML BAG IV STA (12:05)
[2021-08-01] MEDS ORDERED: K-DUR PO STA (12:05)
[2021-08-01] MEDS: VEKLURY 100 MG in SODIUM CHLORIDE 250 ML IV SCH (18:26)
[2021-08-01] MEDS: ATIVAN IVP SCH (20:11)
[2021-08-01] MEDS ORDERED: ROCEPHIN 1 GM/50 ML D5W 1 GM/50 ML BAG IV SCH (21:00)
[2021-08-02] MEDS: ROBITUSSIN SUGAR-FREE PO PRN ×4 (00:08→16:10)
[2021-08-02] MEDS ORDERED: ATIVAN IVP ONE (03:57)
[2021-08-02 04:05] LABS: ABG O2 HGB 90.1 % (95-100); ABG PH 7.38 (7.35-7.45); BEecf 2.7 (-2.0-3.0); COHb 2.2 (0.5-1.5); HCO3 27.8 (21-28); MetHb 0.9 (0-1.5); TCO2 29.2 (19-24); sO2 91.3 % (94-98); tHb 20.3 g/dl (11.7-17.4)
[2021-08-02] MEDS: ATROVENT HFA INHALER (PER PUFF-WITH SPACER) IH SCH ×3 (04:10→14:16)
[2021-08-02] MEDS: VENTOLIN HFA (PER PUFF-WITH SPACER) IH SCH ×3 (04:10→14:16)
[2021-08-02] MEDS: PEPCID PO SCH ×2 (05:31→16:00)
[2021-08-02 05:34] LABS: BASOPHILS % (AUTO) 0.1 % (0.0-3.0); EOSINOPHILS % (AUTO) 0.3 % (0.0-7.0); HEMATOCRIT 40.5 % (42.0-52.0); HEMOGLOBIN 13.9 g/dl (14.0-18.0); IMMATURE GRANULOCYTE # (AUTO) 0.1 (0.0-1.0); IMMATURE GRANULOCYTE % (AUTO) 1.4 % (0.0-5.0); LYMPHOCYTES # (AUTO) 1.6 K/uL (0.60-3.4); LYMPHOCYTES % (AUTO) 23.2 (10.0-50.0); MEAN CORPUSCULAR HGB CONC 34.3 (31.8-35.4); MEAN CORPUSCULAR VOLUME 90.2 fl (80.0-94.0); MONOCYTES # (AUTO) 0.7 K/uL (0.4-2.0); MONOCYTES % (AUTO) 9.8 (0-10); NEUTROPHILS # (AUTO) 4.6 K/ul (2.0-6.9); NEUTROPHILS % (AUTO) 65.2 % (42.2-75.2); PLATELET COUNT 219 10^3/uL (140-440); RDW COEFFICIENT OF VARIATION 12.6 % (11.6-14.8); RED BLOOD COUNT 4.49 10^6/ul (4.70-6.10); WHITE BLOOD COUNT 7.03 K/ul (4.2-10.2)
[2021-08-02 05:46] LABS: ALANINE AMINOTRANSFERASE 35.2 U/L (0-50); ALBUMIN 3.58 g/dL (3.5-5.0); ALKALINE PHOSPHATASE 35.4 U/L (38-126); ASPARTATE AMINO TRANSFERASE 35.1 U/L (17-59); BILIRUBIN,TOTAL 0.59 mg/dL (0.2-1.3); BLOOD UREA NITROGEN 16.8 mg/dL (9-20); CALCIUM 8.77 mg/dL (8.4-10.2); CARBON DIOXIDE 32.7 mmol/L (22-30.0); CHLORIDE 103.6 mmol/L (98-107); CREATININE 0.9 mg/dL (0.60-1.10); GLUCOSE 115.7 mg/dL (74-106); MAGNESIUM 2.29 mg/dL (1.6-2.3); POTASSIUM 3.98 mmol/L (3.5-5.1); SODIUM 139.2 mmol/L (134.5-145); TOTAL PROTEIN 6.66 g/dL (6.3-8.2)
[2021-08-02 05:54] LABS: PROTHROMBIN TIME 10.7 SEC (9.3-11.0)
[2021-08-02] MEDS: TESSALON PERLES PO SCH ×2 (09:14→15:59)
[2021-08-02] MEDS: DECADRON IVP SCH (09:15)
[2021-08-02] MEDS: SYMBICORT 160-4.5 MCG INHALER IH SCH (09:15)
[2021-08-02] MEDS: VITAMIN D PO SCH (09:15)
[2021-08-02] MEDS: ZINC-220 PO SCH (09:17)
[2021-08-02 10:14] VITALS: TEMP 98.5
[2021-08-02] MEDS ORDERED: ATIVAN PO PRN (12:16)
[2021-08-02] MEDS: VEKLURY 100 MG in SODIUM CHLORIDE 250 ML IV SCH (12:19)
[2021-08-02 14:02] VITALS: BP 122/67
--- NOTE | 2021-08-03 07:04 | PCM.DC ---
Final Diagnosis: Discharge dx - COVID pneumonia with hypoxemia. Admit dx - COVID pneumonia with hypoxemia. Discharge date 08/02/21 Admit date HPI - admit with dyspnea and dx of COVID requiring oxygen, and pneumonia. Patient works on a [employer]. Not immunized. (1) Pneumonia due to COVID-19 virus: Status: Acute Code(s): U07.1 - COVID-19; J12.82 - Pneumonia due to coronavirus disease 2018 SNOMED Code(s): 199041859508429710 (2) Hypoxia: Status: Acute Code(s): R09.02 - Hypoxemia SNOMED Code(s): 907058316 Reason for Hospitalization: Dx with COVID in ED and had hypoxemia requiring oxygen. CXR revealed pneumonia. Exam at time of d/c: VSS. afeb. O2 sat at 90% on NC at 10 L flow rate. HEENT - WNL, pharynx clear. Neck supple. Heart RRR, no M. Lungs - adequate breath sounds, some rhonchi, no wheezes. Abd - obese, soft, nl BS. Ext- intact without edema. Neuro intact, WNL. Skin exam WNL. Prognosis/Condition at Discharge: Stable. Medications at Discharge: Ambulatory Orders Medication Instructions Recorded azithromycin 250 mg tablet See Rx Instructions .ROUTE 07/27/21 (Zithromax Z-Michael) .COMPLEX #6 tab benzonatate 200 mg capsule 200 mg PO TID PRN #30 cap 07/27/21 codeine 10 mg-guaifenesin 100 mg/5 10 ml PO Q4-6H PRN #237 ml 07/27/21 mL oral liquid albuterol sulfate 90 mcg/actuation 2 puff INHALATION Q4-6H PRN #8.5 g 08/02/21 aerosol inhaler methylprednisolone 4 mg tablets in See Rx Instructions .ROUTE 08/02/21 a dose pack (Medrol (Michael)) .COMPLEX #21 ea Lab/Diagnostics: Laboratory Tests 07/28/21 07/28/21 07/28/21 13:15 13:35 13:35 WBC 5.78 RBC 4.85 Hgb 15.0 Hct 42.7 MCV 88.0 MCH 30.9 MCHC 35.1 RDW Coeff of Delbert 12.8 Plt Count 129 L Immature Gran % (Auto) 0.3 Neut % (Auto) 69.9 Lymph % (Auto) 23.7 Barron % (Auto) 5.9 Eos % (Auto) 0.0 Baso % (Auto) 0.2 Neut # (Auto) 4.0 Lymph # (Auto) 1.4 Barron # (Auto) 0.3 L Eos # (Auto) 0.0 Baso # (Auto) 0.0 Immature Gran # (Auto) 0.0 PT INR Puncture Site Base Excess O2 Saturation ABG pH ABG pCO2 ABG pO2 ABG HCO3 ABG Total CO2 Ozzie Test Hemoglobin Oxyhemoglobin Carboxyhemoglobin Total Hemoglobin O2 Delivery Device Oxygen Liter Flow FiO2 % Sodium 135.6 Potassium 3.40 L Chloride 99.0 Carbon Dioxide 28.9 Anion Gap 11.10 BUN 13.6 Creatinine 0.87 Estimated GFR (MDRD) 98.00 BUN/Creatinine Ratio 15.63 Glucose 132.1 H Lactic Acid Calcium 8.83 Magnesium Ferritin Total Bilirubin 0.80 AST 53.9 ALT 36.0 Alkaline Phosphatase 42.2 Lactate Dehydrogenase Total Creatine Kinase 426.0 H CK-MB (CK-2) 0.512 CK-MB (CK-2) % 0.1200 Troponin I < 0.012 C-Reactive Prot, Quant Total Protein 7.54 Albumin 4.19 Globulin 3.35 Albumin/Globulin Ratio 1.25 D-Dimer SARS CoV-2 RNA Rapid RODGER Positive H 07/28/21 07/28/21 07/29/21 13:41 15:24 05:00 WBC RBC Hgb Hct MCV MCH MCHC RDW Coeff of Delbert Plt Count Immature Gran % (Auto) Neut % (Auto) Lymph % (Auto) Barron % (Auto) Eos % (Auto) Baso % (Auto) Neut # (Auto) Lymph # (Auto) Barron # (Auto) Eos # (Auto) Baso # (Auto) Immature Gran # (Auto) PT 10.4 INR 1.00 Puncture Site Rbrach Base Excess 5.4 H O2 Saturation 87.5 L ABG pH 7.47 H ABG pCO2 40.0 ABG pO2 50.0 L* ABG HCO3 29.1 H ABG Total CO2 30.3 H Ozzie Test + Hemoglobin 1.5 Oxyhemoglobin 86.6 L Carboxyhemoglobin 2.0 H Total Hemoglobin 15.9 O2 Delivery Device Ra Oxygen Liter Flow FiO2 % 21.0 Sodium Potassium Chloride Carbon Dioxide Anion Gap BUN Creatinine Estimated GFR (MDRD) BUN/Creatinine Ratio Glucose Lactic Acid 0.78 Calcium Magnesium Ferritin Total Bilirubin AST ALT Alkaline Phosphatase Lactate Dehydrogenase Total Creatine Kinase CK-MB (CK-2) CK-MB (CK-2) % Troponin I C-Reactive Prot, Quant Total Protein Albumin Globulin Albumin/Globulin Ratio D-Dimer SARS CoV-2 RNA Rapid RODGER 07/29/21 07/29/21 07/29/21 05:00 05:00 05:10 WBC 6.34 RBC 4.82 Hgb 14.8 Hct 42.4 MCV 88.0 MCH 30.7 MCHC 34.9 RDW Coeff of Delbert 12.8 Plt Count 143 Immature Gran % (Auto) 0.3 Neut % (Auto) 72.5 Lymph % (Auto) 22.1 Barron % (Auto) 4.9 Eos % (Auto) 0.0 Baso % (Auto) 0.2 Neut # (Auto) 4.6 Lymph # (Auto) 1.4 Barron # (Auto) 0.3 L Eos # (Auto) 0.0 Baso # (Auto) 0.0 Immature Gran # (Auto) 0.0 PT INR Puncture Site Base Excess O2 Saturation ABG pH ABG pCO2 ABG pO2 ABG HCO3 ABG Total CO2 Ozzie Test Hemoglobin Oxyhemoglobin Carboxyhemoglobin Total Hemoglobin O2 Delivery Device Oxygen Liter Flow FiO2 % Sodium Potassium Chloride Carbon Dioxide Anion Gap BUN Creatinine Estimated GFR (MDRD) BUN/Creatinine Ratio Glucose Lactic Acid Calcium Magnesium Ferritin 1720.00 H Total Bilirubin AST ALT Alkaline Phosphatase Lactate Dehydrogenase Total Creatine Kinase CK-MB (CK-2) CK-MB (CK-2) % Troponin I < 0.012 C-Reactive Prot, Quant Total Protein Albumin Globulin Albumin/Globulin Ratio D-Dimer 435.93 SARS CoV-2 RNA Rapid RODGER 07/29/21 07/29/21 07/29/21 05:10 05:45 11:12 WBC RBC Hgb Hct MCV MCH MCHC RDW Coeff of Delbert Plt Count Immature Gran % (Auto) Neut % (Auto) Lymph % (Auto) Barron % (Auto) Eos % (Auto) Baso % (Auto) Neut # (Auto) Lymph # (Auto) Barron # (Auto) Eos # (Auto) Baso # (Auto) Immature Gran # (Auto) PT INR Puncture Site Rrad Base Excess 5.2 H O2 Saturation 90.1 L ABG pH 7.45 ABG pCO2 42.0 ABG pO2 56.0 L* ABG HCO3 29.2 H ABG Total CO2 30.5 H Ozzie Test Pos Hemoglobin 1.0 Oxyhemoglobin 89.0 L Carboxyhemoglobin 2.7 H Total Hemoglobin 15.1 O2 Delivery Device Vapotherm Oxygen Liter Flow FiO2 % 100.0 Sodium 135.2 Potassium 3.83 Chloride 96.8 L Carbon Dioxide 29.6 Anion Gap 12.63 BUN 16.5 Creatinine 0.89 Estimated GFR (MDRD) 96.00 BUN/Creatinine Ratio 18.53 Glucose 118.0 H Lactic Acid Calcium 8.99 Magnesium Ferritin Total Bilirubin 0.78 AST 50.8 ALT 35.3 Alkaline Phosphatase 38.1 Lactate Dehydrogenase 320 H Total Creatine Kinase CK-MB (CK-2) CK-MB (CK-2) % Troponin I C-Reactive Prot, Quant 70 H Total Protein 7.65 Albumin 4.27 Globulin 3.38 Albumin/Globulin Ratio 1.26 D-Dimer SARS CoV-2 RNA Rapid RODGER 07/30/21 07/30/21 07/30/21 04:45 05:21 05:21 WBC 7.85 RBC 4.85 Hgb 14.8 Hct 42.9 MCV 88.5 MCH 30.5 MCHC 34.5 RDW Coeff of Delbert 12.7 Plt Count 154 Immature Gran % (Auto) 0.3 Neut % (Auto) 71.2 Lymph % (Auto) 21.4 Barron % (Auto) 7.1 Eos % (Auto) 0.0 Baso % (Auto) 0.0 Neut # (Auto) 5.6 Lymph # (Auto) 1.7 Barron # (Auto) 0.6 Eos # (Auto) 0.0 Baso # (Auto) 0.0 Immature Gran # (Auto) 0.0 PT 10.1 INR 0.97 Puncture Site Rbrach Base Excess 6.1 H O2 Saturation 97.6 ABG pH 7.46 H ABG pCO2 42.0 ABG pO2 93.0 ABG HCO3 29.9 H ABG Total CO2 31.2 H Ozzei Test Pos Hemoglobin 0.9 Oxyhemoglobin 95.3 Carboxyhemoglobin 2.0 H Total Hemoglobin 15.0 O2 Delivery Device Vapotherm Oxygen Liter Flow FiO2 % 100.0 Sodium Potassium Chloride Carbon Dioxide Anion Gap BUN Creatinine Estimated GFR (MDRD) BUN/Creatinine Ratio Glucose Lactic Acid Calcium Magnesium Ferritin Total Bilirubin AST ALT Alkaline Phosphatase Lactate Dehydrogenase Total Creatine Kinase CK-MB (CK-2) CK-MB (CK-2) % Troponin I C-Reactive Prot, Quant Total Protein Albumin Globulin Albumin/Globulin Ratio D-Dimer SARS CoV-2 RNA Rapid RODGER 07/30/21 07/30/21 07/30/21 05:21 05:21 05:21 WBC RBC Hgb Hct MCV MCH MCHC RDW Coeff of Delbert Plt Count Immature Gran % (Auto) Neut % (Auto) Lymph % (Auto) Barron % (Auto) Eos % (Auto) Baso % (Auto) Neut # (Auto) Lymph # (Auto) Barron # (Auto) Eos # (Auto) Baso # (Auto) Immature Gran # (Auto) PT INR Puncture Site Base Excess O2 Saturation ABG pH ABG pCO2 ABG pO2 ABG HCO3 ABG Total CO2 Ozzie Test Hemoglobin Oxyhemoglobin Carboxyhemoglobin Total Hemoglobin O2 Delivery Device Oxygen Liter Flow FiO2 % Sodium 136.8 Potassium 3.54 Chloride 99.0 Carbon Dioxide 29.7 Anion Gap 11.64 BUN 19.1 Creatinine 0.86 Estimated GFR (MDRD) 100.00 BUN/Creatinine Ratio 22.20 Glucose 118.2 H Lactic Acid Calcium 8.69 Magnesium Ferritin 1700.00 H Total Bilirubin 0.72 AST 59.0 ALT 41.4 Alkaline Phosphatase 40.8 Lactate Dehydrogenase 337 H Total Creatine Kinase CK-MB (CK-2) CK-MB (CK-2) % Troponin I < 0.012 C-Reactive Prot, Quant 57 H Total Protein 7.45 Albumin 4.10 Globulin 3.35 Albumin/Globulin Ratio 1.22 D-Dimer 459.19 SARS CoV-2 RNA Rapid RODGER 07/31/21 07/31/21 07/31/21 04:50 05:00 05:00 WBC RBC Hgb Hct MCV MCH MCHC RDW Coeff of Delbert Plt Count Immature Gran % (Auto) Neut % (Auto) Lymph % (Auto) Barron % (Auto) Eos % (Auto) Baso % (Auto) Neut # (Auto) Lymph # (Auto) Barron # (Auto) Eos # (Auto) Baso # (Auto) Immature Gran # (Auto) PT 10.3 INR 0.99 Puncture Site Rb Base Excess 5.6 H O2 Saturation 96.1 ABG pH 7.43 ABG pCO2 45.0 ABG pO2 80.0 L ABG HCO3 29.9 H ABG Total CO2 31.3 H Ozzie Test + Hemoglobin 1.1 Oxyhemoglobin 93.8 L Carboxyhemoglobin 2 H Total Hemoglobin 15.2 O2 Delivery Device Oxygen Liter Flow FiO2 % 90.0 Sodium 138.7 Potassium 3.40 L Chloride 99.6 Carbon Dioxide 33.6 H Anion Gap 8.90 BUN 22.1 H Creatinine 0.94 Estimated GFR (MDRD) 90.00 BUN/Creatinine Ratio 23.51 Glucose 121.5 H Lactic Acid Calcium 8.88 Magnesium Ferritin Total Bilirubin 0.63 AST 47.9 ALT 39.2 Alkaline Phosphatase 36.4 L Lactate Dehydrogenase Total Creatine Kinase CK-MB (CK-2) CK-MB (CK-2) % Troponin I C-Reactive Prot, Quant Total Protein 7.10 Albumin 3.81 Globulin 3.29 Albumin/Globulin Ratio 1.15 D-Dimer SARS CoV-2 RNA Rapid RODGER 08/01/21 08/01/21 08/01/21 05:05 05:05 05:05 WBC 7.37 RBC 4.58 L Hgb 14.2 Hct 41.3 L MCV 90.2 MCH 31.0 MCHC 34.4 RDW Coeff of Delbert 12.6 Plt Count 198 Immature Gran % (Auto) 0.9 Neut % (Auto) 64.5 Lymph % (Auto) 25.2 Barron % (Auto) 9.0 Eos % (Auto) 0.3 Baso % (Auto) 0.1 Neut # (Auto) 4.8 Lymph # (Auto) 1.9 Barron # (Auto) 0.7 Eos # (Auto) 0.0 Baso # (Auto) 0.0 Immature Gran # (Auto) 0.1 PT 10.6 INR 1.02 Puncture Site Base Excess O2 Saturation ABG pH ABG pCO2 ABG pO2 ABG HCO3 ABG Total CO2 Ozzie Test Hemoglobin Oxyhemoglobin Carboxyhemoglobin Total Hemoglobin O2 Delivery Device Oxygen Liter Flow FiO2 % Sodium 139.2 Potassium 3.89 Chloride 103.0 Carbon Dioxide 33.1 H Anion Gap 6.99 BUN 21.4 H Creatinine 0.93 Estimated GFR (MDRD) 91.00 BUN/Creatinine Ratio 23.01 Glucose 114.2 H Lactic Acid Calcium 9.17 Magnesium Ferritin Total Bilirubin 0.56 AST 39.7 ALT 36.3 Alkaline Phosphatase 37.1 L Lactate Dehydrogenase Total Creatine Kinase CK-MB (CK-2) CK-MB (CK-2) % Troponin I C-Reactive Prot, Quant Total Protein 6.90 Albumin 3.72 Globulin 3.18 Albumin/Globulin Ratio 1.16 D-Dimer SARS CoV-2 RNA Rapid RODGER 08/01/21 08/01/21 08/01/21 06:15 08:18 09:30 WBC RBC Hgb Hct MCV MCH MCHC RDW Coeff of Delbert Plt Count Immature Gran % (Auto) Neut % (Auto) Lymph % (Auto) Barron % (Auto) Eos % (Auto) Baso % (Auto) Neut # (Auto) Lymph # (Auto) Barron # (Auto) Eos # (Auto) Baso # (Auto) Immature Gran # (Auto) PT INR Puncture Site Lbrach R rad Base Excess 6.8 H 6.8 H O2 Saturation 91.6 L 95.6 ABG pH 7.46 H 7.46 H ABG pCO2 43.0 43.0 ABG pO2 59.0 L* 75.0 L ABG HCO3 30.6 H 30.6 H ABG Total CO2 31.9 H 31.9 H Ozzie Test + Y Hemoglobin 1.0 0.9 Oxyhemoglobin 90.4 L 93.6 L Carboxyhemoglobin 2.3 H 2.1 H Total Hemoglobin 14.5 14.3 O2 Delivery Device Vapotherm Vapotherm Oxygen Liter Flow 35.00 FiO2 % 90.0 90.0 Sodium 140.2 Potassium 3.34 L Chloride 101.7 Carbon Dioxide 34.4 H Anion Gap 7.44 BUN 20.9 H Creatinine 0.87 Estimated GFR (MDRD) 98.00 BUN/Creatinine Ratio 24.02 Glucose 102.0 Lactic Acid Calcium 9.21 Magnesium 2.21 Ferritin Total Bilirubin AST ALT Alkaline Phosphatase Lactate Dehydrogenase Total Creatine Kinase 136.7 CK-MB (CK-2) 0.960 CK-MB (CK-2) % 0.7000 Troponin I C-Reactive Prot, Quant Total Protein Albumin Globulin Albumin/Globulin Ratio D-Dimer SARS CoV-2 RNA Rapid RODGER 08/02/21 08/02/21 08/02/21 03:40 05:20 05:20 WBC RBC Hgb Hct MCV MCH MCHC RDW Coeff of Delbert Plt Count Immature Gran % (Auto) Neut % (Auto) Lymph % (Auto) Barron % (Auto) Eos % (Auto) Baso % (Auto) Neut # (Auto) Lymph # (Auto) Barron # (Auto) Eos # (Auto) Baso # (Auto) Immature Gran # (Auto) PT 10.7 INR 1.03 Puncture Site Lb Base Excess 2.7 O2 Saturation 91.3 L ABG pH 7.38 ABG pCO2 47.0 H ABG pO2 63.0 L ABG HCO3 27.8 ABG Total CO2 29.2 H Ozzie Test + Hemoglobin 0.9 Oxyhemoglobin 90.1 L Carboxyhemoglobin 2.2 H Total Hemoglobin 20.3 H O2 Delivery Device Vapotherm Oxygen Liter Flow FiO2 % 90.0 Sodium 139.2 Potassium 3.98 Chloride 103.6 Carbon Dioxide 32.7 H Anion Gap 6.88 BUN 16.8 Creatinine 0.90 Estimated GFR (MDRD) 94.00 BUN/Creatinine Ratio 18.66 Glucose 115.7 H Lactic Acid Calcium 8.77 Magnesium 2.29 Ferritin Total Bilirubin 0.59 AST 35.1 ALT 35.2 Alkaline Phosphatase 35.4 L Lactate Dehydrogenase Total Creatine Kinase CK-MB (CK-2) CK-MB (CK-2) % Troponin I C-Reactive Prot, Quant Total Protein 6.66 Albumin 3.58 Globulin 3.08 Albumin/Globulin Ratio 1.16 D-Dimer SARS CoV-2 RNA Rapid RODGER 08/02/21 05:20 WBC 7.03 RBC 4.49 L Hgb 13.9 L Hct 40.5 L MCV 90.2 MCH 31.0 MCHC 34.3 RDW Coeff of Delbert 12.6 Plt Count 219 Immature Gran % (Auto) 1.4 Neut % (Auto) 65.2 Lymph % (Auto) 23.2 Barron % (Auto) 9.8 Eos % (Auto) 0.3 Baso % (Auto) 0.1 Neut # (Auto) 4.6 Lymph # (Auto) 1.6 Barron # (Auto) 0.7 Eos # (Auto) 0.0 Baso # (Auto) 0.0 Immature Gran # (Auto) 0.1 PT INR Puncture Site Base Excess O2 Saturation ABG pH ABG pCO2 ABG pO2 ABG HCO3 ABG Total CO2 Ozzie Test Hemoglobin Oxyhemoglobin Carboxyhemoglobin Total Hemoglobin O2 Delivery Device Oxygen Liter Flow FiO2 % Sodium Potassium Chloride Carbon Dioxide Anion Gap BUN Creatinine Estimated GFR (MDRD) BUN/Creatinine Ratio Glucose Lactic Acid Calcium Magnesium Ferritin Total Bilirubin AST ALT Alkaline Phosphatase Lactate Dehydrogenase Total Creatine Kinase CK-MB (CK-2) CK-MB (CK-2) % Troponin I C-Reactive Prot, Quant Total Protein Albumin Globulin Albumin/Globulin Ratio D-Dimer SARS CoV-2 RNA Rapid RODGER [address] [address] Diagnostic Imaging Diagnostic Imaging Report : [id number] Signed Patient: DARA BRASWELL Acct:[id number] Medical Record: [id number] : 1985 Loc: ED Room/Bed: Age/Sex: 36 / M ADM Status: REG ER Date of Service: 07/28/21 Ordering Physician: YAN NOLASCO DO Procedure(s): CHEST, 1V AP ONLY Report Number(s): [id number] Accession Number(s): [id number] cc: YAN NOLASCO DO EXAM: CHEST RADIOGRAPH (1 VIEW) TECHNIQUE: Frontal Chest Radiograph. HISTORY: Cough. COMPARISON: Chest radiograph 05/11/2019 FINDINGS: Lines, Tubes, Devices: None Lungs and Pleura: Low lung volumes. Multifocal opacities in the right upper lobe, right lower lobe, and left lower lobe. No pleural effusion. No pneumothorax. Cardiomediastinum: Enlarged cardiomediastinal silhouette. No aortic calcifications. Bones/Soft Tissues: No acute osseous abnormality. No soft tissue abnormality. Upper Abdomen: Within normal limits. IMPRESSION: Multifocal bilateral lung opacities concerning for pneumonia. Education Provided to Patient and Family: COVID Follow-ups: PCP in one week, sooner if needed. Call [facility] to establish understanding of his status. Home health to follow immediately after d/c. Discharge Disposition: Home Hospital Course: 36 y/o male admit thru ED with COVID pneumonia and hypoxemia. No complicating medical issues. Tx with remdesivir and decadron. Albuterol MDI prn. Supportive care. Oxygen began with NC, advanced to vapotherm to keep sat. 90% and higher. When rem. completed, patient wanted d/c or he was going to sign out AMA. RT was able to reduce oxygenation to 10 L per NC, keeping O2 sat at 90% or above, and home oxygen was set up at this level. Home health to follow. We recommended against him going home today due to the relatively high O2 requirement, but he was going to leave AMA if we did not d/c him, so we did the best that we could. Plan: Discharge home with oxygen at 10 L per NC. See d/c med list. Discharge performed at a [id number] exam requiring 45 minutes.
== END 2021-08-02 17:49 | disposition home or self-care (01) | DRG 177 ==
LOC: ED 13:05 → MEDSURG B 15:02 → SCU 08-01 18:50
PROVIDERS: ADMIT Emergency Medicine; ATTEND Emergency Medicine
DX: J12.82 Pneumonia due to coronavirus disease 2019; I49.9 Cardiac arrhythmia, unspecified; R09.02 Hypoxemia; U07.1 COVID-19; Z99.81 Dependence on supplemental oxygen